=== PATIENT | male | born 1955 | race Caucasian/White ===

== ENCOUNTER 2022-06-03 18:35 | Outpatient (CLI) | payer BC | END 2022-06-03 23:59 | disposition critical access hospital (66) | LOC: EMS 18:35 | DX: M25.511 Pain in right shoulder (principal); V00.131A Fall from skateboard, initial encounter; Y93.51 Activity, roller skating (inline) and skateboarding; Y92.480 Sidewalk as the place of occurrence of the external cause | CPT/HCPCS: A0425; A0429 ==